=== PATIENT | male | born 1950 | race African-American/Black ===

== ENCOUNTER 2017-12-07 08:41 | Inpatient (IN) | payer OTHER ==
[2017-12-07] MEDS ORDERED: cefOXitin SODIUM 2 GM in NS 100 ML IV ONE (09:00)
[2017-12-07] MEDS ORDERED: LR 1,000 ML IV ONE (09:01)
--- NOTE | 2017-12-07 09:45 | PDANEPAE ---
ANE History of Present Illness prostate cancer, here for robotic prostatectomy ANE Past Medical History - Cardiovascular History Hx Hypertension: No Hx Arrhythmias: No Hx Chest Pain: No Hx Coronary Artery / Peripheral Vascular Disease: No Hx CHF / Valvular Disease: No Hx Palpitations: No - Pulmonary History Hx COPD: No Hx Asthma/Reactive Airway Disease: No Hx Recent Upper Respiratory Infection: No Hx Oxygen in Use at Home: No Hx Sleep Apnea: No Sleep Apnea Screening Result - Last Documented: Negative - Neurologic History Hx Cerebrovascular Accident: No Hx Seizures: No Hx Dementia: No - Endocrine History Hx Diabetes: Yes - Renal History Hx Renal Disorders: No - Liver History Hx Hepatic Disorders: No - Neurological & Psychiatric Hx Hx Neurological and Psychiatric Disorders: No - Cancer History Hx Cancer: Yes Cancer History Comment: prostate - Congenital Disorder History Hx Congenital Disorders: No - GI History Hx Gastrointestinal Disorders: No - Other Health History Other Health History: reading glasses. partial, upper front - Chronic Pain History Chronic Pain: No - Surgical History Prior Surgeries: left TRIP, 2013. hernia into testicle repair, 20 years ago ANE Review of Systems Review of Systems: - Exercise capacity METS (RN): 4 METS ANE Patient History - Allergies Allergies/Adverse Reactions: No Known Allergies Allergy (Verified 11/14/17 16:01) - Home Medications Home Medications: Atorvastatin Calcium [Lipitor 20 mg (RX)] 20 mg PO DAILY 11/28/12 [Last Taken ] Bimatoprost 0.01% [Lumigan 0.01% (RX)] 1 drops EACHEYE HS 11/28/12 [Last Taken 12/06/17] Cholecalciferol Vit D3 [Vitamin D3 2000 units (OTC)] 2,000 units PO DAILY [Last Taken 1 Week Ago ~11/30/17] Ibuprofen [Motrin 200 mg (OTC)] 400 mg PO DAILY PRN 11/28/12 [Last Taken 1 Month Ago ~11/07/17] Austin-3 Fatty Acids/Fish Oil [Austin 3 1,000 mg Softgel] 1 each PO DAILY [Last Taken 1 Week Ago ~11/30/17] metFORMIN HCL [Glumetza 500 mg] 1,000 - 1,500 mg PO DAILY 11/28/12 [Last Taken 12/06/17] - NPO status NPO Since - Liquids (Date): 12/07/17 NPO Since - Liquids (Time): 08:00 NPO Since - Solids (Date): 12/06/17 NPO Since - Solids (Time): 07:30 - Smoking Hx Smoking Status: Former smoker - Family Anes Hx Family Hx Anesthesia Complications: none ANE Labs/Vital Signs - Vital Signs Blood Pressure: 168/99 Heart Rate: 95 Respiratory Rate: 14 O2 Sat (%): 97 Height: 175.26 cm Weight: 102.058 kg ANE Physical Exam - Airway Neck exam: FROM Mallampati Score: Class 1 Mouth exam: dentures - Pulmonary Pulmonary: no respiratory distress - Cardiovascular Cardiovascular: regular rate and rhythym - ASA Status ASA Status: III ANE Anesthesia Plan Anesthesia Plan: general endotracheal anesthesia
[2017-12-07] MEDS ORDERED: MIDAZOLAM 2 MG/2 ML VIAL IVP ONE (09:46)
[2017-12-07] MEDS ORDERED: PHENYLEPHRINE HCL 100 MCG/ML SYR ONE (10:41)
[2017-12-07] MEDS ORDERED: fentaNYL 250 MCG/5 ML INJ ONE (10:41)
[2017-12-07] MEDS ORDERED: LIDOCAINE 2% 100 MG/5 ML SYR ONE (10:41)
[2017-12-07] MEDS ORDERED: DEXAMETHASONE 4 MG/ML VIAL ONE (10:41)
[2017-12-07] MEDS ORDERED: ROCURONIUM 100 MG/10 ML VIAL ONE (10:41)
[2017-12-07] MEDS ORDERED: SUGAMMADEX SODIUM 200 MG/2 ML VIAL IVP ONE ×2 (10:41→17:12)
[2017-12-07] MEDS ORDERED: PROPOFOL 200 MG/20 ML VIAL ONE (10:41)
[2017-12-07] MEDS ORDERED: ONDANSETRON 4 MG/2 ML VIAL ONE (10:41)
--- NOTE | 2017-12-07 10:41 | PDHPUP ---
History & Physical Update H&P update statement: This history and physical update is based on an assessment of the patient which was completed after admission or registration (within 24 hours), but prior to the surgery/procedure. H&P update: no change in patient's condition since H&P completed
[2017-12-07] MEDS ORDERED: BUPIVACAINE/EPI 0.5% 30 ML SDV ONE (10:44)
--- NOTE | 2017-12-07 11:08 | POSTOPPROG ---
Post Op Note Date of Operation: 12/11/17 Surgeon: Ernesto Ku (# [id number]) Anesthesia: GET(General Endotracheal) Pre-op Diagnosis: Prostate cancer, phimosis Post-op Diagnosis: Prostate cancer, phimosis Procedure: 1. Robotic subtotal prostatectomy 2. Circumcision Findings: See op note Inf/Abcess present in the surg proc area at time of surgery?: No EBL: 100-500 (350 cc) Drains: Darshan Briseno (10 Flat) Specimen(s): 1. Foreskin 2. Anterior bladder neck margin 3. Right posterior apical margin 4. Posterior urethral margin 5. Subtotal prostate
[2017-12-07] MEDS ORDERED: D50W 25 GM/50 ML SYR IVP PRN (11:09)
[2017-12-07] MEDS ORDERED: HYDROmorphONE/DILAUDID 6 MG/30 ML PCA IV PRN (11:09)
[2017-12-07] MEDS ORDERED: NALOXONE HCL 0.4 MG/ML INJ IVP PRN ×2 (11:09→16:12)
--- NOTE | 2017-12-07 13:49 | PDMN ---
Medical Necessity Medical necessity: [facility] [place]: S960 prostatectomy 1 day INPT only-- [facility]# [id number] APPROVED FOR CPT 99159 DONE INT LOS 1 DAY
[2017-12-07] MEDS ORDERED: ROCURONIUM 50 MG/5 ML VIAL ONE (14:24)
[2017-12-07] MEDS ORDERED: RANITIDINE 50 MG/2 ML VIAL ONE ×2 (14:24→17:07)
[2017-12-07] MEDS ORDERED: cefOXitin SODIUM 1 GM in NS 50 ML IV ONE (15:30)
[2017-12-07] MEDS ORDERED: THROMBIN(HUM PLAS)/FIBRINOG/CA 5 ML VIAL TP ONE (15:35)
[2017-12-07] MEDS ORDERED: ALBUTEROL 3 ML DEYVIAL IH PRN (16:12)
[2017-12-07] MEDS ORDERED: HYDROCODONE/APAP 5/325 TAB PO PRN (16:12)
[2017-12-07] MEDS ORDERED: ONDANSETRON 4 MG/2 ML VIAL IVP PRN ×2 (16:12→17:51)
[2017-12-07] MEDS ORDERED: DEXAMETHASONE 4 MG/ML VIAL IVP PRN (16:12)
[2017-12-07] MEDS ORDERED: ACETAMINOPHEN 500 MG TAB PO PRN (16:12)
[2017-12-07] MEDS ORDERED: oxyCODONE IR 5 MG TAB PO PRN (16:12)
[2017-12-07] MEDS ORDERED: fentaNYL 100 MCG/2 ML INJ ONE ×2 (17:31→17:54)
[2017-12-07] MEDS ORDERED: LIDOCAINE 2% JELLY 5 ML TUBE TP PRN (17:51)
[2017-12-07] MEDS ORDERED: PROMETHAZINE HCL 25 MG/ML INJ IVP PRN (17:51)
--- NOTE | 2017-12-07 17:53 | POSTANESTH ---
Post Anesthetic Evaluation Cardiovascular Status: Normal, Stable Respiratory Status: Normal, Stable Level of Consciousness/Mental Status: Can Participate in Eval, Alert and Oriented Pain Control: Adequate, Prn Tx Ordered Nausea/Vomiting Control: Adequate, Prn Tx Ordered Complications Possibly Related to Anesthesia: None Noted
[2017-12-07] MEDS ORDERED: HYDROmorphONE/DILAUDID 1 MG/ML INJ ONE (17:54)
[2017-12-07] MEDS: fentaNYL 100 MCG/2 ML INJ IVP PRN ×3 (17:56→18:31)
[2017-12-07] MEDS: HYDROmorphONE/DILAUDID 2 MG/ML INJ IVP PRN ×4 (17:58→18:59)
[2017-12-07] MEDS ORDERED: NS 1,000 ML IV SCH (18:00)
[2017-12-07] MEDS: cefOXitin SODIUM 2 GM in NS 100 ML IV SCH (21:49)
[2017-12-07] MEDS: BIMATOPROST 0.01% 2.5 ML OPHT.BTL EACHEYE SCH (21:52)
[2017-12-07] MEDS: INSULIN REGULAR HUMAN 100 UNIT/ML UNIT SC SCH ×2 (22:19→22:53)
[2017-12-08] MEDS: cefOXitin SODIUM 2 GM in NS 100 ML IV SCH ×3 (04:07→15:41)
[2017-12-08] MEDS: INSULIN REGULAR HUMAN 100 UNIT/ML UNIT SC SCH ×4 (09:31→21:30)
--- NOTE | 2017-12-08 10:31 | SOAPPROG ---
SOAP Progress Note Assessment/Plan: Assessment: POD 1 s/p robotic subtotal prostatectomy + circumcision - stable. Intraoperative findings reviewed in detail w/ pt. Plan: 1. Ambulate. 2. Advance diet. 3. Switch to oral narcotics. 4. Possible discharge later today w/ Burns. Subjective: Complains of bladder spasms that have decreased since last night. No other complaints. Objective: Vital Signs Temp Pulse Resp BP Pulse Ox 36.8 C 90 14 127/69 H 96 12/08/17 07:41 12/08/17 07:41 12/08/17 07:41 12/08/17 07:41 12/08/17 07:41 Laboratory Results 12/08/17 04:45 12/08/17 05:00 12/07/17 12/08/17 12/09/17 05:59 05:59 05:59 Intake Total 2766.6 Output Total 1665 Balance 1101.6 Physical Exam - Physical Exam General Appearance: WD/WN, alert, obese Abdomen: non-tender, soft, other (incisions intact) Male Genitalia: other (circumcision incision intact; urine clear via Burns) Skin: warm/dry Extremities: non-tender, normal inspection Neuro/Psych: alert, normal mood/affect ICD10 Worksheet Patient Problems: Problems Problem Status Onset Primary osteoarthritis of left hip Acute Prostate cancer Acute
[2017-12-08] MEDS: ATORVASTATIN CALCIUM 20 MG TAB PO SCH (10:44)
[2017-12-08] MEDS: metFORMIN SR 500 MG TAB PO SCH (12:50)
[2017-12-08] MEDS: HYDROCODONE/APAP 10/325 TAB PO PRN ×2 (13:08→21:20)
--- NOTE | 2017-12-08 14:41 | ASMTCMCOM ---
CM Note CM Note Notes: Pt's chart reviewed for d/c planning. Pt is a 67 y/o male who today had surgery; hat had a radical prostatectomy. He is to be switched to oral antibiotics and possibly d/jessica later today with Burns. He has no CM needs at this time. CM will follow for changes. D/C Independent. Date Signed: 12/08/2017 02:40 PM Electronically Signed By:Mariam Grier
[2017-12-08] MEDS: BIMATOPROST 0.01% 2.5 ML OPHT.BTL EACHEYE SCH (21:30)
[2017-12-09] MEDS: ATORVASTATIN CALCIUM 20 MG TAB PO SCH (08:08)
[2017-12-09] MEDS: INSULIN REGULAR HUMAN 100 UNIT/ML UNIT SC SCH ×4 (08:11→20:52)
--- NOTE | 2017-12-09 08:17 | SOAPPROG ---
SOAP Progress Note Assessment/Plan: Assessment: Prostate cancer Acute POD # 2, doing well, consider DC after pt passes flatus Plan: consider DC 12/09/17 10:21 Subjective: no flatus and ambulating Objective: Vital Signs Temp Pulse Resp BP Pulse Ox 36.7 C 99 18 146/85 H 93 12/09/17 04:00 12/09/17 04:00 12/09/17 04:00 12/09/17 04:00 12/09/17 04:00 Laboratory Results 12/08/17 04:45 12/08/17 05:00 12/08/17 12/09/17 12/10/17 05:59 05:59 05:59 Intake Total 2766.6 750 Output Total 1665 1180 Balance 1101.6 -430 Physical Exam - Physical Exam General Appearance: alert Neck: supple Respiratory: No respiratory distress Cardiac/Chest: regular rate, rhythm Abdomen: soft, distended Rectal: normal exam, other (post circ) Back: No CVA tenderness Skin: warm/dry Extremities: No calf tenderness, No Jose E's sign Neuro/Psych: alert, oriented x 3 ICD10 Worksheet Patient Problems: Problems Problem Status Onset Primary osteoarthritis of left hip Acute Prostate cancer Acute
[2017-12-09] MEDS: BACITRACIN OINTMENT 1 PACKET TP SCH ×3 (14:02→20:52)
[2017-12-09] MEDS: HYDROCODONE/APAP 10/325 TAB PO PRN (14:06)
[2017-12-09] MEDS: metFORMIN SR 500 MG TAB PO SCH (14:14)
[2017-12-09] MEDS ORDERED: POLYETHYLENE GLYCOL 3350 17 GM PKT PO PRN (14:35)
[2017-12-09] MEDS ORDERED: MAGNESIUM HYDROXIDE 30 ML UDCUP PO PRN (14:35)
[2017-12-09] MEDS ORDERED: SENNOSIDES/DOCUSATE SODIUM TAB PO PRN (14:36)
[2017-12-09] MEDS: IBUPROFEN 600 MG TAB PO PRN (15:25)
[2017-12-09] MEDS: BIMATOPROST 0.01% 2.5 ML OPHT.BTL EACHEYE SCH (20:52)
[2017-12-10 08:39] VITALS: BP 138/75
--- NOTE | 2017-12-10 09:13 | SOAPPROG ---
SOAP Progress Note Assessment/Plan: Assessment: Prostate cancer Acute POD # 3, doing well, consider DC Plan: consider DC 12/10/17 09:30 Subjective: doing well Objective: Vital Signs Temp Pulse Resp BP Pulse Ox 36.9 C 117 H 18 138/75 H 90 L 12/10/17 08:36 12/10/17 08:36 12/10/17 08:36 12/10/17 08:36 12/10/17 08:36 Laboratory Results 12/10/17 04:08 12/10/17 04:08 12/09/17 12/10/17 12/11/17 05:59 05:59 05:59 Intake Total 750 1400 Output Total 1180 1180 40 Balance -430 220 -40 Physical Exam - Physical Exam General Appearance: alert Neck: supple Respiratory: No respiratory distress Cardiac/Chest: regular rate, rhythm Abdomen: soft Back: No CVA tenderness Skin: warm/dry Extremities: No calf tenderness, No Jose E's sign Neuro/Psych: oriented x 3 ICD10 Worksheet Patient Problems: Problems Problem Status Onset Primary osteoarthritis of left hip Acute Prostate cancer Acute
[2017-12-10] MEDS: IBUPROFEN 600 MG TAB PO PRN (10:05)
[2017-12-10] MEDS: INSULIN REGULAR HUMAN 100 UNIT/ML UNIT SC SCH (10:06)
[2017-12-10] MEDS: BACITRACIN OINTMENT 1 PACKET TP SCH (10:06)
[2017-12-10] MEDS: ATORVASTATIN CALCIUM 20 MG TAB PO SCH (10:06)
--- NOTE | 2017-12-11 02:02 | GOP ---
DATE OF OPERATION: 12/07/2017 SURGEON: Ernesto Ku MD SUPERVISOR [employer]KING HAND: Milka Cervantes CFA. ANESTHESIA: General endotracheal. PREOPERATIVE DIAGNOSIS: 1. Prostate adenocarcinoma. 2. Phimosis. POSTOPERATIVE DIAGNOSIS: 1. Prostate adenocarcinoma. 2. Phimosis. PROCEDURE PERFORMED: 1. Circumcision. 2. Robotically-assisted laparoscopic subtotal prostatectomy. FINDINGS: SPECIMENS: 1. Penile foreskin. 2. Anterior bladder neck. 3. Right posterior apical margin. 4. Posterior urethral margin. 1. Subtotal portion of prostate. 5. ESTIMATED BLOOD LOSS: Approximately 350 cc. INDICATIONS: This gentleman was recently diagnosed with prostate adenocarcinoma and has opted for ra dical prostatectomy as definitive therapy. The patient was also noted to have significant phimosis. Preoperative plans were to perform a robotically-assisted radical prostatectomy with circumcision to be postponed until recovery from the prostatectomy. The indications for the procedures as well as p otential risks and complications were discussed with the patient preoperatively. He appeared to unde rstand. His questions were answered, and he wished to proceed. Written informed surgical consent wa s thereafter obtained. DESCRIPTION OF PROCEDURE: The patient was brought to the operating room and administered general end otracheal anesthesia. He was carefully placed in the low lithotomy position on the operating table w [facility]. The patient's left arm was kept along his side while the right arm was kept abdu cted less than 90 degrees on an arm board. The abdomen and genitalia were sterilely prepped and drap ed in standard fashion utilizing Ioban. I initially attempted to place an 18-Eritrean Burns catheter s terilely on the field to bag drainage. However, the foreskin could not be reduced in order to allow visualization of the urethral meatus due to severe phimosis. As a result, I decided to proceed initi ally with circumcision. A proximal skin incision was marked initially with a scalpel overlying the c dexter with a marking pen. His scalp was used to cut along this marked line. I then stretched the pr eputial skin distally with a clamp, which allowed for retraction of the prepuce at that point. The p enile glans was sterilely prepped with Betadine paint at this point. The distal skin incision was th en made circumferentially with a scalpel approximately 1 cm proximal to the coronal sulcus. The prox imal skin incision was then also made with a scalpel circumferentially. The intervening skin was rem kimberly with a combination of Metzenbaum scissors and electrocautery. The underlying subcutaneous tissu e was cauterized for hemostatic purposes. The proximal and distal penile shaft skin edges were then reapproximated with a running 4-0 chromic suture. This resulted in a nice cosmetic outcome. It shou ld be mentioned the urethral meatus was normal in terms of shape and position on the glans. This com pleted the circumcision portion of the procedure. An 18-Eritrean Burns catheter was then placed on the field sterilely to bag drainage. Intraabdominal a ccess was gained in the supraumbilical midline approximately 2 cm above the umbilicus with a Veress n eedle. The abdomen was insufflated to 15 mmHg which was the pressure maintained throughout the major ity of the case. A 12 mm laparoscopic port was placed at this location and was later used as a camer a port. My remaining port of the abdomen was then inspected with a 0-degree 12 mm robotic camera. T he remaining port site incisions were then made as follows: An 8 mm robotic port was placed in the l eft lower quadrant approximately 2 cm above the umbilicus and 12 cm lateral to the midline, another 8 mm robotic port placed in the right lower quadrant approximately 2 cm below the umbilicus and 7.5 cm lateral to the midline, a third 8 mm robotic port placed 8 cm lateral to the right lower quadrant ro botic port and nearly in the same transverse line of the umbilicus, and a 12 mm system port placed in the left upper quadrant along the lateral edge of the rectus muscle. All these ports were placed un jose direct vision without complication. The patient was then placed in approximately 26 degrees [place] position, and the robot was docked between the patient's legs. The appropriate robotic arm s were then connected to the respective ports. I then left the patient's bedside and entered the [facility]'s robotic console. The 12 mm 0-degree robotic lens was used initially during the operation. In spection of the pelvis in the prerectal space was notable for significant adhesions between the sigmo id colon and the lateral abdominal wall. These were sharply released with the monopolar scissors. T he pelvis was noted to be much narrower and deeper than normal. The prerectal space was quite confin ed. The posterior peritoneum was then incised transversely approximately 1 cm above the rectum with monopolar scissors. A gentle spreading motion was then used in an effort to identify the location of the vas deferens. This was found to be difficult. I then followed the vas deferens down from its t akeoff at the level of spermatic cord bilaterally and followed them down until I was able to find the m in the prerectal space. I then carefully and gently dissected the seminal vesicles free from surro unding tissue. There was an extensive amount of perirectal fibrosis which affected normal tissue bhumika tamara in the location of the vas deferens and seminal vesicles posteriorly. It was much more difficult to perform this dissection as a result of this generalized fibrosis of unclear etiology. I was ulti mately able to transect the vas deferens and carefully dissect them back to their insertion at the ba se of the prostate. The seminal vesicles were extremely adherent to the surrounding tissue due to th e above-mentioned fibrosis. I was able to ultimately dissect them free from the surrounding tissue w ith a combination of scissors and bipolar cautery as necessary for hemostasis. The fibrotic conditio n did not appear to be consistent with locally advanced cancer in my opinion. Once the seminal vesic les and vas deferens were dissected free, I made a transverse incision through Denonvilliers' fascia just medially below the base of the prostate in the midline and attempted to extend this incision lat erally 1-2 cm from the midline in order to create a space between the prostate anteriorly and the rec nando posteriorly. This proved to be extremely difficult due to extensive fibrosis. I was concerned a bout potentially violating the rectum and so I did not force this dissection at this point. This com pleted the posterior dissection. The remainder of the dissection was then performed anteriorly. The obliterated umbilical ligaments w ere identified bilaterally and transected high along the anterior abdominal wall with bipolar cautery and divided with scissors. A transverse incision through the anterior peritoneum was then made to c onnect the incisions through the obliterated umbilical ligaments. The anterior peritoneum lateral to the obliterated umbilical ligaments was then opened with scissors, and this dissection was then covington ied back toward the underlying vas deferens bilaterally in order to expose the lateral pelvic spaces. Gentle blunt dissection was then used to develop these spaces bilaterally and to allow for better v isualization of the bladder, prostate, and entrance into the retropubic space of Retzius. I then att empted to identify the endopelvic fascia lateral to the prostate on each side. This fascia was more difficult to identify than normal due to an extensive amount of retroperitoneal fat in addition to mo re fibrosis that was located in the pelvic region in general. I was ultimately able to open the endo pelvic fascia lateral to the prostate on each side at about the level of the prostate. I then carefu lly teased the levator ani muscles off the prostate bilaterally from the base of the prostate extendi ng back toward the apex. This dissection bilaterally was much more difficult than normal due to dist ortion of normal tissue planes. It is unclear why this distortion of these planes was present other than the generalized fibrosis that I had mentioned previously was omnipresent and problematic through out the surgery. I then isolated the dorsal vein complex at the level of the prostatic apex and dist al to it. Two separate 0 Vicryl stick ties were then used to ligate the dorsal vein complex distal t o the prostatic apex. I then turned my attention to preparing for the bladder neck dissection. There was an extensive amou nt of retroperitoneal fat that was overlying the prostate, bladder neck, and anterior bladder. I att empted to mobilize this fat cephalad to these structures as much as possible. Nonetheless, even afte r doing so, visualization of the bladder neck was difficult even with in-and-out movement of the Fole y catheter. I ultimately used bipolar cautery to begin my bladder neck dissection. Monopolar scisso rs were then used to continue this dissection lateral to the midline on each side as well as to jose cruz nue it more deeply in an effort to identify the urethra at the level of bladder neck. However, upon performing this dissection, I did enter the bladder more cephalad along its anterior aspect based on my visual interpretation of the anatomy. At this point, I felt that the bladder neck was more caudal than where I had entered the bladder. As a result, I decided to close this bladder cystotomy with a running 2-0 Vicryl suture. This required a few sutures in total in order to be able to accomplish t his closure. I then rerouted my dissection more caudally to where I perceived the bladder neck to be located. I continued this dissection more deeply until I identified with what I perceived to be the bladder neck. Again, this dissection was exceedingly difficult due to extensive bleeding from the r etroperitoneal fat overlying the bladder neck as well as the bladder seromuscularis at this location. Hemostasis was maintained as much as possible with bipolar and monopolar cautery. The tissue plane s between the prostate base and the bladder neck were much more distorted and difficult to identify t suarez normal for reasons that were unclear to me. I ultimately identified what I thought was the bladd er neck and transected it with scissors. I was able to identify the Burns and pulled up anteriorly i n order to expose the back wall of the bladder neck and the urethra running through it. This was als o transected, and I continued my dissection more posteriorly and laterally in order to further mobili ze the prostate from the bladder neck. It should be mentioned that while performing this dissection there appeared to be more redundancy to the anterior bladder neck, and a portion of this tissue was d issected free separately and sent as a separate specimen for permanent examination. As I continued t o dissect what I thought was the prostate base from the posterior bladder neck, I had difficulty iden tifying the location of the previously dissected seminal vesicles and vas deferens. I was dissecting in the midline more posteriorly and was concerned that I might be getting very close to the rectum. Again, tissue planes were much more difficult to identify visually due to extensive generalized pelv ic fibrosis. I decided not to continue this dissection in the midline more posteriorly until I had l igated the lateral prostatic pedicles first. This was performed with a series of clips then and divi ded with scissors. I continued my dissection towards the prostatic apex while staying in what I yrn ght was along the lateral aspect of the prostate. A wide margin was taken on the right side because of the extent of cancer that was noted preoperatively. I then continued my dissection toward the ape x and was ultimately able to perform an apical dissection by first transecting the dorsal vein comple x above the apex and then continued my dissection more posteriorly through the urethra. I then trans ected what I thought was Denonvilliers' fascia, and I was, at this point, able to completely free up the dissected portion of the prostate. As I examined this tissue, I was concerned that I had dissect ed and excised only the anterior aspect of the prostate. As I examined the pelvis more carefully, id entification and discrimination of the tissue planes remained very difficult due to a combination of some slow but persistent bleeding, retroperitoneal abdominal fat, and generalized fibrosis of the pel khari structures that extended along the endopelvic fascia from one side of the pelvis to the other. A t this point, I did not feel comfortable dissecting more posteriorly as I was very concerned that I w ould end up violating the rectum. Doing so, in my opinion, potentially by dilating the rectum would severely increase the patient's morbidity from the operation. Therefore, I decided to leave whatever portion of prostate was remained in place in order to avoid injury to the rectum, as mentioned previ ously. I then performed an anastomosis between the urethral stump and what I presumed initially was the blad jose neck. However, more than likely I was performing an anastomosis between the urethral stump and t he remaining portion of the prostatic urethra. This anastomosis was performed with a double-armed 4- 0 Monocryl suture. Once this anastomosis was completed in a [id number] approximating fashion, a new 18-Eritrean Burns catheter was placed in the bladder, and 20 cc of sterile water were placed in t he balloon. The catheter was irrigated manually, and the return was clear with no evidence of leakag e from the anastomosis. Again, I did not feel it would be in the patient's best interest for me to c clarissainue making efforts to remove the remaining portion of the prostate primarily because of concerns that I would not be able to do so without injuring the patient's rectum. I also gave consideration t o converting to open radical prostatectomy. However, because the patient's narrow pelvis as well as the very deep extent to his prostate and bladder, I did not feel that this would serve in the patient 's best interest either. Therefore, at this point, I decided to come to complete the operation. Aakash roximately 5 cc of Evicel were placed over the dorsal vein complex stump as well as the lateral pelvi c dissections bilaterally. Once hemostasis was confirmed at this point, the dissected specimen was p laced in a bag and a 10 flat Darshan-Briseno drain was draped over the pelvis and brought out through t he left lower quadrant robotic port site. It was ultimately secured to the skin with a 2-0 silk sutu re and bulb suction. This completed the robotic portion of the procedure. I returned to the patient's bedside. The specimen bag with the contained portion of dissected prosta te was removed from the supraumbilical incision. All the remaining ports were then removed after key pproximating the anterior rectus fascia at the 12 mm system port site with an 0 Vicryl suture in util ization of the fascial closure device. The incisions were then anesthetized with a total of 30 cc of 0.5% Marcaine with epinephrine. The anterior rectus fascia at the location of the supraumbilical in cision was also reapproximated with a running 0 Vicryl suture. The skin edges were then closed at ea ch incision site with running 4-0 Monocryl suture in a subcuticular fashion followed by the applicati on of Dermabond. The patient's circumcision incision was then dressed with a narrow strip of Xerofor m gauze circumferentially. A folded 4 x 4 gauze was placed circumferentially over the Xeroform gauze followed by 2-inch light circumferential application of Coban. The patient was then awakened, extub ated, transferred to his bed, then taken to the recovery room. He tolerated the procedure well overa ll. It should also be mentioned that, during the course of the prostatic dissection, I did send some tiss ue from the right apical region lateral to the prostate as a right prostate margin. I then also sent some redundant tissue from the posterior urethral stump region as a posterior urethral margin. COMPLICATIONS: Extensive pelvic fibrosis and generalized difficulty visualizing and discriminating n ormal tissue planes as detailed in the body of the operative report. DISPOSITION: He was transferred to the recovery room in stable condition and will be admitted for po stoperative care. I will review the operative findings with the patient in the morning following eliud ramila. 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 Copy requested to: BRIAN MAGANA /[id number]/MODL
== END 2017-12-10 13:16 | disposition home or self-care (01) | DRG 708 ==
LOC: F3E 08:41 → F1N 11:17
PROVIDERS: ADMIT Specialist; ATTEND Specialist
PROC: 0VT04ZZ Resection of Prostate, Percutaneous Endoscopic Approach (ICD-10-PCS; principal; 2017-12-07 10:30)
PROC: 0VTTXZZ Resection of Prepuce, External Approach (ICD-10-PCS; principal; 2017-12-07 10:30)
DX: C61 Malignant neoplasm of prostate (principal); N47.1 Phimosis; E11.9 Type 2 diabetes mellitus without complications; E78.00 Pure hypercholesterolemia, unspecified; N52.9 Male erectile dysfunction, unspecified
CPT/HCPCS: J0694; J1100; J1170; J1815; J2001; J2250; J2370; J2405; J2704; J2780; J3010

== ENCOUNTER → 2017-12-19 | Outpatient (CLI) | payer OTHER ==
[~2017-12-19] MED LIST: IOTHALAMATE MEG (CYSTO-CONRAY II) 250 ML VIAL BLADIN ONE
== END ==
LOC: FIMAGING 15:31
PROVIDERS: ATTEND Specialist
DX: Z08 Encounter for follow-up examination after completed treatment for malignant neoplasm (principal); Z90.79 Acquired absence of other genital organ(s); Z85.46 Personal history of malignant neoplasm of prostate
CPT/HCPCS: Q9961